=== PATIENT | male | born 1990 | race American Indian/Alaskan Native ===

== ENCOUNTER 2021-09-04 12:07 | Outpatient (CLI) | payer OTHER ==
--- NOTE | 2021-09-04 15:29 | XRay Report ---
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 Signer Name: Barrie Grimes MD Signed: 09/04/2021 3:24 PM Workstation Name: [email or web address]
--- NOTE | 2021-09-04 15:40 | XRay Report ---
Lumbar spine 3 views INDICATION: Low back pain IMPRESSION: Moderately developed multilevel discogenic and facet arthropathy throughout the lumbar sp ine especially L5-S1 where there is at least moderate bilateral neural foraminal stenosis. Mild anter ior wedging identified involving the L1 vertebral body with 10% loss of vertebral body height. Signer Name: Barrie Grimes MD Signed: 09/04/2021 3:36 PM Workstation Name: [email or web address]
== END 2021-09-04 12:08 | disposition home or self-care (01) ==
LOC: XRAY 12:07
PROVIDERS: ATTEND Internal Medicine
DX: M47.817 Spondylosis without myelopathy or radiculopathy, lumbosacral region (principal); M19.011 Primary osteoarthritis, right shoulder
CPT/HCPCS: 72100